=== PATIENT | female | born 1985 | race Two or more races ===

== ENCOUNTER 2017-03-07 01:07 | Emergency (ER) | payer SELFPAY ==
[~2017-03-07] VITALS: Ht 162.6 cm; Wt 63.5 kg
[2017-03-07] MEDS ORDERED: predniSONE 20 MG TAB PO ONE (01:45)
[2017-03-07] MEDS ORDERED: ALBUTEROL SULF 2.5 MG/0.5ML(0.5%) NEB SOLN NEB ONE (01:45)
[2017-03-07 03:12] VITALS: BP 123/81
== END 2017-03-07 03:50 | disposition home or self-care (01) ==
LOC: EDBD 01:07 → ER 01:10
DX: J45.901 Unspecified asthma with (acute) exacerbation (principal); T78.40XA Allergy, unspecified, initial encounter
CPT/HCPCS: 94640; 99283; J7512